=== PATIENT | male | born 1945 | race Caucasian/White ===

== ENCOUNTER 2019-08-17 16:29 | Observation (INO) | payer MEDICARE, MEDICAID ==
[~2019-08-17] VITALS: Ht 170.2 cm; Wt 80.0 kg
[2019-08-17] MEDS ORDERED: SODIUM CHLORIDE FLUSH 10ML SYR IVF ONE (17:00)
[2019-08-17] MEDS ORDERED: ASPIRIN 81 MG TABLET CHEW PO ONE (17:00)
[2019-08-17 17:01] LABS: BASOPHILS # (AUTO) 0.03 x10^3/uL (0-0.1); BASOPHILS % (AUTO) 1 % (0-1); EOSINOPHILS # (AUTO) 0.76 x10^3/uL (0-0.4); EOSINOPHILS % (AUTO) 11 % (1-7); LYMPHOCYTES # (AUTO) 1.73 x10^3/uL (1-3.4); LYMPHOCYTES % (AUTO) 25 % (22-44); MD NO; MEAN CORPUSCULAR HEMOGLOBIN 30.4 pg (27.5-34.5); MEAN CORPUSCULAR HGB CONC 34.3 g/dL (33.2-36.2); MEAN CORPUSCULAR VOLUME 88.6 fL (81-97); MEAN PLATELET VOLUME 8.4 fL (7.4-10.4); MONOCYTES # (AUTO) 0.61 x10^3/uL (0.2-0.8); MONOCYTES % (AUTO) 9 % (2-9); NEUTROPHILS # (AUTO) 3.94 x10^3/uL (1.8-6.8); NEUTROPHILS % (AUTO) 56 % (42-75); PLATELET COUNT 216 x10^3/uL (130-400); RED BLOOD COUNT 4.53 x10^6/uL (4.38-5.82); RED CELL DISTRIBUTION WIDTH 14.7 % (9.4-14.8)
[2019-08-17 17:08] LABS: ALANINE AMINOTRANSFERASE 21 U/L (12-78); ALBUMIN 3.6 g/dL (3.4-5.0); ANION GAP 5 mmol/L (5-15); CALCIUM 9.1 mg/dL (8.5-10.1); CHLORIDE 110 mmol/L (98-107); CREATININE 0.96 mg/dL (0.7-1.3)
[2019-08-17 17:12] LABS: ALKALINE PHOSPHATASE 75 U/L (45-117); BILIRUBIN,TOTAL 0.3 mg/dL (0.2-1.0); TOTAL PROTEIN 6.8 g/dL (6.4-8.2); TROPONIN I < 0.015 ng/mL (0.000-0.045)
--- NOTE | 2019-08-17 17:24 | NUR ---
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
--- NOTE | 2019-08-17 17:27 | NUR ---
PT STATES HAVING CP FOR APPROX 1HR. PT DESCRIBES PRESSURE. PT RATES /10. PT REPORTS SOB, DIZZINESS WELL. PT BP 190/103. PT REPORTS BEING OUT OF BP MEDS FOR 10 DAYS NOW, WILL UPDATE ERP. PT TO CARD MONITOR, BP, CONT PULSE OX
[2019-08-17] MEDS ORDERED: ASPIRIN 81 MG TABLET CHEW ONE (17:40)
--- NOTE | 2019-08-17 18:37 | NUR ---
ANTICIPATE ADMIT, PIV INITIATED. ERP AT BEDSIDE TO EVAL PT
--- NOTE | 2019-08-17 19:20 | NUR ---
PT FOUND TO HAVE BED BUGS. PT WAYNE IN THE ED AND PLACED IN A CLEAN ROOM
[2019-08-17] MEDS ORDERED: VALSARTAN 160 MG TABLET PO ONE (19:30)
[2019-08-17] MEDS ORDERED: hydrALAzine 20 MG/ML, 1ML IV PRN (20:00)
[2019-08-17] MEDS ORDERED: hydrALAzine 20 MG/ML, 1ML ONE (20:06)
--- NOTE | 2019-08-17 20:06 | NUR ---
REPORT TO ASHA BELLA
--- NOTE | 2019-08-17 20:17 | NUR ---
PT BP HIGH. PT MEDICATED FOR HIGH BP PER EMAR
[2019-08-17] MEDS ORDERED: NITROGLYCERIN OINT 2%, 1GM TP ONE (20:30)
[2019-08-17 21:31] VITALS: BP 186/100
[2019-08-17 23:09] VITALS: BP 155/75
[2019-08-18 02:50] VITALS: BP 155/76
[2019-08-18 04:38] LABS: BASOPHILS # (AUTO) 0.07 x10^3/uL (0-0.1); BASOPHILS % (AUTO) 1 % (0-1); EOSINOPHILS # (AUTO) 0.85 x10^3/uL (0-0.4); EOSINOPHILS % (AUTO) 14 % (1-7); LYMPHOCYTES # (AUTO) 1.33 x10^3/uL (1-3.4); LYMPHOCYTES % (AUTO) 21 % (22-44); MD NO; MEAN CORPUSCULAR HEMOGLOBIN 29.1 pg (27.5-34.5); MEAN CORPUSCULAR HGB CONC 32.3 g/dL (33.2-36.2); MEAN CORPUSCULAR VOLUME 90.2 fL (81-97); MEAN PLATELET VOLUME 8.3 fL (7.4-10.4); MONOCYTES # (AUTO) 0.64 x10^3/uL (0.2-0.8); MONOCYTES % (AUTO) 10 % (2-9); NEUTROPHILS # (AUTO) 3.39 x10^3/uL (1.8-6.8); NEUTROPHILS % (AUTO) 54 % (42-75); PLATELET COUNT 207 x10^3/uL (130-400); RED BLOOD COUNT 4.68 x10^6/uL (4.38-5.82); RED CELL DISTRIBUTION WIDTH 14.4 % (9.4-14.8)
[2019-08-18 04:47] LABS: ANION GAP 6 mmol/L (5-15); CHLORIDE 112 mmol/L (98-107); CREATININE 0.85 mg/dL (0.7-1.3)
[2019-08-18 04:51] LABS: TROPONIN I < 0.015 ng/mL (0.000-0.045)
[2019-08-18] MEDS ORDERED: ASPIRIN 81 MG TABLET EC PO SCH (06:00)
[2019-08-18 06:38] VITALS: BP 123/84
== END 2019-08-18 08:39 | disposition left against medical advice (07) ==
LOC: ED 19:27 → EDIP 19:45 → 5SO 21:12
PROVIDERS: ADMIT Internal Medicine; ATTEND Internal Medicine
DX: R07.9 Chest pain, unspecified (principal); I16.1 Hypertensive emergency; F17.200 Nicotine dependence, unspecified, uncomplicated; Z86.73 Personal history of transient ischemic attack (TIA), and cerebral infarction without residual deficits
CPT/HCPCS: 36415; 71045; 80048; 80053; 83880; 84484; 85025; 93005; 96374; 99284; G0378; J0360